=== PATIENT | female | born 1980 | race Caucasian/White ===

== ENCOUNTER 2017-08-10 08:16 | Emergency (ER) | payer MEDICAID, OTHER ==
[~2017-08-10] VITALS: Ht 137.2 cm; Wt 28.1 kg
[~2017-08-10 08:16] MED LIST: ALBU0.63 IH; ALBU1.256 IH; CHOL100028 PO; LEVO500T20 PO; LORA10TA2 PO; OLAN5TAB26 PO; OMEP20CA10 PO; PSYLLIUM PO
[2017-08-10 08:17] VITALS: BP_SYST 145
--- NOTE | 2017-08-10 08:17 | NUR ---
Patient to ER bed 03 to gown for evaluation. Side rails up. Report given to Dagoberto.
--- NOTE | 2017-08-10 08:20 | NUR ---
PATRICE Lawson at bedside examining patient.
--- NOTE | 2017-08-10 08:22 | NUR ---
Pt bib caregivers c/o bleeding L 5th digit. Caregivers unable to state how injury occurred and pt is poor historian. 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 Pt's finger is bleeding in spit of applied pressure.
[2017-08-10] MEDS ORDERED: DIPH-TET-PERTUS Vaccine 0.5 ML VIAL (ADACEL) I.M. ONE (08:30)
[2017-08-10] MEDS ORDERED: MORPHINE 2 MG/ML INJ. SYRINGE IM ONE (09:15)
--- NOTE | 2017-08-10 09:29 | NUR ---
Medicated per MD orders. Dr. Evans at bedside rewrapping left little finger. Pt tolerating well.
[2017-08-10 10:15] VITALS: BP_SYST 145
--- NOTE | 2017-08-10 10:15 | NUR ---
Patient given written and verbal discharge instructions and verbalizes understanding. ER MD discussed with patient the results and treatment provided. Patient in stable condition. ID arm band removed. NO RX GIVEN Patient educated on pain management and to follow up with PMD. Pain Scale 0. Opportunity for questions provided and answered.
== END 2017-08-10 10:15 | disposition home or self-care (01) ==
LOC: SED 08:16
DX: S61.307A Unspecified open wound of left little finger with damage to nail, initial encounter (principal); K21.9 Gastro-esophageal reflux disease without esophagitis; Z88.8 Allergy status to other drugs, medicaments and biological substances; X58.XXXA Exposure to other specified factors, initial encounter; Y93.89 Activity, other specified; Y92.89 Other specified places as the place of occurrence of the external cause; Y99.8 Other external cause status
CPT/HCPCS: 90471; 90715; 96372; 99284; J2270

== ENCOUNTER 2018-10-14 17:57 | Emergency (ER) | payer MEDICAID ==
[~2018-10-14] VITALS: Ht 137.2 cm; Wt 32.2 kg
[~2018-10-14 17:57] MED LIST changes: -ALBU1.256 IH; +ALBU1.257 IH; -CHOL100028 PO; +CHOL100034 PO
== END 2018-10-14 18:47 | disposition home or self-care (01) ==
LOC: SED 17:57
DX: H60.12 Cellulitis of left external ear (principal); K21.9 Gastro-esophageal reflux disease without esophagitis; Z86.2 Personal history of diseases of the blood and blood-forming organs and certain disorders involving the immune mechanism; Z88.8 Allergy status to other drugs, medicaments and biological substances; Z79.899 Other long term (current) drug therapy
CPT/HCPCS: 99283

== ENCOUNTER 2018-11-07 08:47 | Emergency (ER) | payer MEDICAID ==
[~2018-11-07] VITALS: Ht 144.8 cm; Wt 32.2 kg
[2018-11-07] MEDS ORDERED: NACL 0.9% 1,000 ML IV ONE (08:53)
[2018-11-07 08:57] VITALS: BP_SYST 100
[2018-11-07] MEDS ORDERED: LORazepam 2 MG/ML VIAL (FOR ER USE) IM ONE (09:30)
[2018-11-07 09:36] LABS: BILIRUBIN,URINE NEGATIVE (NEGATIVE); BLOOD, URINE NEGATIVE (NEGATIVE); CLARITY/URINE CLEAR (CLEAR); COLOR,URINE YELLOW (YELLOW); GLUCOSE,URINE NEGATIVE (NEGATIVE); KETONES,URINE TRACE (NEGATIVE); LEUKOCYTE ESTERASE ,URINE NEGATIVE (NEGATIVE); NITRITE, URINE NEGATIVE (NEGATIVE); PH,URINE 6.5 (5.0-8.0); PROTEIN URINE NEGATIVE (NEGATIVE); UROBILINOGEN,URINE 0.2 (0.2-1.0)
[2018-11-07 10:20] LABS: BASOPHILS # (AUTO) 0.1 K/uL (0.0-0.2); BASOPHILS % (AUTO) 0.8 % (0.0-2.0); EOSINOPHILS # (AUTO) 0.2 K/uL (0.0-0.4); EOSINOPHILS % (AUTO) 1.8 % (0.0-4.0); HEMATOCRIT 42.7 % (36-48); LYMPHOCYTES # (AUTO) 1.3 K/uL (1.0-5.5); LYMPHOCYTES % (AUTO) 11.3 % (20.5-51.5); MEAN CORPUSCULAR HEMOGLOBIN 29 pg (27-31); MEAN CORPUSCULAR HGB CONC 33 % (32-36); MEAN CORPUSCULAR VOLUME 87 fL (79.0-98.0); MONOCYTES # (AUTO) 0.6 K/uL (0.0-1.0); MONOCYTES % (AUTO) 5.6 % (1.7-9.3); NEUTROPHILS # (AUTO) 9.3 K/uL (1.8-7.7); NEUTROPHILS % (AUTO) 80.5 % (40.0-70.0); PLATELET COUNT (AUTO) 211 K/uL (130-430); RED BLOOD CELL COUNT(AUTO) 4.89 MIL/uL (4.2-6.2); WHITE BLOOD COUNT (AUTO) 11.5 K/uL (4.8-10.8)
[2018-11-07 10:26] LABS: CALCIUM 8.9 mg/dL (8.4-11.0); CREATININE 0.87 mg/dL (0.55-1.30); POTASSIUM 3.8 mmol/L (3.5-5.1)
[2018-11-07 10:31] LABS: ALBUMIN 3.2 g/dL (3.4-4.8); TOTAL BILIRUBIN 0.1 mg/dL (0.0-1.0)
[2018-11-07] MEDS ORDERED: cefTRIAXone 250 MG VIAL IM ONE (12:30)
[2018-11-07] MEDS ORDERED: LIDOCAINE 1%, 20 ML MDV 20 ML ONE (13:05)
[2018-11-07 13:44] VITALS: BP_SYST 109
== END 2018-11-07 13:44 | disposition home or self-care (01) ==
LOC: SED 08:47
DX: R45.1 Restlessness and agitation (principal); H66.92 Otitis media, unspecified, left ear; D72.829 Elevated white blood cell count, unspecified; K21.9 Gastro-esophageal reflux disease without esophagitis; Z86.2 Personal history of diseases of the blood and blood-forming organs and certain disorders involving the immune mechanism; Z88.8 Allergy status to other drugs, medicaments and biological substances; Z79.899 Other long term (current) drug therapy
CPT/HCPCS: 36415; 71045; 80053; 81003; 82550; 83605; 83690; 84484; 85025; 85610; 85730; 87040; 96372; 99284; J0696; J2001; J2060

== ENCOUNTER 2019-01-02 14:31 | Emergency (ER) | payer MEDICAID ==
[~2019-01-02] VITALS: Ht 132.1 cm; Wt 31.8 kg
[2019-01-02 14:56] VITALS: BP_SYST 149
[2019-01-02] MEDS ORDERED: LORazepam 2 MG/ML VIAL IM ONE (16:00)
[2019-01-02] MEDS ORDERED: DIPHENHYDRAMINE INJ 50 MG/ML VIAL IM ONE (16:00)
[2019-01-02] MEDS ORDERED: LORazepam 2 MG/ML VIAL (FOR ER USE) ONE (17:41)
== END 2019-01-02 18:44 | disposition home or self-care (01) ==
LOC: SED 14:31
DX: S00.11XA Contusion of right eyelid and periocular area, initial encounter (principal); R03.0 Elevated blood-pressure reading, without diagnosis of hypertension; K21.9 Gastro-esophageal reflux disease without esophagitis; Z86.2 Personal history of diseases of the blood and blood-forming organs and certain disorders involving the immune mechanism; Z88.8 Allergy status to other drugs, medicaments and biological substances; Z79.899 Other long term (current) drug therapy; W19.XXXA Unspecified fall, initial encounter; Y93.89 Activity, other specified; Y92.89 Other specified places as the place of occurrence of the external cause; Y99.8 Other external cause status
CPT/HCPCS: 96372; 99283; J1200; J2060; 99284

== ENCOUNTER 2019-06-26 20:31 | Emergency (ER) | payer MEDICAID ==
[~2019-06-26] VITALS: Ht 121.9 cm; Wt 29.0 kg
[2019-06-26 21:16] VITALS: BP_SYST 126
--- NOTE | 2019-06-26 22:03 | NUR ---
Edward rasmussen in ED - 06/26/19 at 2310 by KELLY Pt placed to ER bed 01 with career advisor. Pt report given to VERITO Argueta.
--- NOTE | 2019-06-26 23:01 | NUR ---
Patient to ER bed 08 to gown for evaluation. Side rails up.
--- NOTE | 2019-06-26 23:02 | NUR ---
Pt brought by caregiver, per caregiver pt has bruising to Right eye s/p hitting right face on a night stand while , pt ambulatory ,Alert X1 , pt with Hx of mental deficits, respirations even and unlabored, no bleeding noted, will continue to monitor .
--- NOTE | 2019-06-26 23:03 | NUR ---
Dr Canela at bedside examining patient
[2019-06-26 23:15] VITALS: BP_SYST 122
--- NOTE | 2019-06-26 23:20 | NUR ---
Patient and pt's caregiver given written and verbal discharge instructions and verbalizes understanding. ER MD discussed with patient and pt's caregiver the results and treatment provided. Patient in stable condition. ID arm band removed. No Rx given. Patient and pt's caregiver educated on pain management and to follow up with PMD. Pain Scale 2/10 tolerable for pt. Opportunity for questions provided and answered. Medication side effect fact sheet provided.
== END 2019-06-26 23:20 | disposition home or self-care (01) ==
LOC: SED 20:31
DX: S00.11XA Contusion of right eyelid and periocular area, initial encounter (principal); K21.9 Gastro-esophageal reflux disease without esophagitis; Z86.2 Personal history of diseases of the blood and blood-forming organs and certain disorders involving the immune mechanism; Z88.8 Allergy status to other drugs, medicaments and biological substances; Z79.899 Other long term (current) drug therapy; W18.09XA Striking against other object with subsequent fall, initial encounter; Y93.02 Activity, running; Y92.89 Other specified places as the place of occurrence of the external cause; Y99.8 Other external cause status
CPT/HCPCS: 99281

== ENCOUNTER 2019-07-31 07:49 | Emergency (ER) | payer MEDICAID ==
[~2019-07-31] VITALS: Ht 132.1 cm; Wt 31.8 kg
[2019-07-31 07:59] VITALS: BP_SYST 138
[2019-07-31] MEDS ORDERED: prednisoLONE 15 MG/5 ML UDC PO ONE (08:15)
[2019-07-31 19:13] VITALS: BP_SYST 135
== END 2019-07-31 09:12 | disposition home or self-care (01) ==
LOC: SED 07:49
DX: J45.901 Unspecified asthma with (acute) exacerbation (principal); K21.9 Gastro-esophageal reflux disease without esophagitis; Z88.8 Allergy status to other drugs, medicaments and biological substances; Z79.899 Other long term (current) drug therapy
CPT/HCPCS: 71045; 99283

== ENCOUNTER 2020-08-01 19:04 | Emergency (ER) | payer MEDICAID ==
[~2020-08-01] VITALS: Ht 134.6 cm; Wt 29.9 kg
[~2020-08-01 19:04] MED LIST changes: -OMEP20CA10 PO; +OMEP20CA11 PO
[2020-08-01 19:20] VITALS: BP_SYST 125
--- NOTE | 2020-08-01 19:20 | NUR ---
Patient to ER bed 4 to gown for evaluation. Side rails up.
--- NOTE | 2020-08-01 19:30 | NUR ---
pt hit the back of her head today around 4pm and has a well approximated laceration, bleeding controlled. pt hx of intellectual disability and typical behavior includes swinging arms and head around. caregiver denies any vomiting or change in behavior.
--- NOTE | 2020-08-01 19:35 | NUR ---
PATRICE maravilla at bedside examining patient.
--- NOTE | 2020-08-01 19:45 | NUR ---
VERITO white at bedside to clean laceration with normal saline and iodine.
--- NOTE | 2020-08-01 19:49 | NUR ---
Head laceration irrigated w/ Normal Saline, approx 100ml. Pt tolerated well.
--- NOTE | 2020-08-01 20:00 | NUR ---
DR. OBRIEN AT BEDSIDE APPLYING DERMABOND TO LACERATION.
--- NOTE | 2020-08-01 20:06 | NUR ---
Patient given written and verbal discharge instructions and verbalizes understanding. ER MD discussed with patient the results and treatment provided. Patient in stable condition. ID arm band removed. Patient educated on pain management and to follow up with PMD, Restaurant Mgr educated wound must be kept clean and dry. Pain Scale 0/10. Opportunity for questions provided and answered.
== END 2020-08-01 20:06 | disposition home or self-care (01) ==
LOC: SED 19:04
DX: S01.01XA Laceration without foreign body of scalp, initial encounter (principal); J45.909 Unspecified asthma, uncomplicated; K21.9 Gastro-esophageal reflux disease without esophagitis; Z86.2 Personal history of diseases of the blood and blood-forming organs and certain disorders involving the immune mechanism; Z79.899 Other long term (current) drug therapy; Z88.8 Allergy status to other drugs, medicaments and biological substances; W22.01XA Walked into wall, initial encounter; Y93.89 Activity, other specified; Y92.89 Other specified places as the place of occurrence of the external cause; Y99.8 Other external cause status
CPT/HCPCS: 99282

== ENCOUNTER 2021-03-04 13:33 | Emergency (ER) | payer MEDICAID ==
[~2021-03-04] VITALS: Ht 121.9 cm; Wt 31.3 kg
[~2021-03-04 13:33] MED LIST changes: -OMEP20CA11 PO; +OMEP20CA15 PO
[2021-03-04 13:45] VITALS: BP_SYST 135
[2021-03-04] MEDS ORDERED: LIDOCAINE 1% 10 MG/ML, 20 ML MDV INJ ONE (14:00)
[2021-03-04 14:16] VITALS: BP_SYST 135
== END 2021-03-04 14:15 | disposition home or self-care (01) ==
LOC: SED 13:33
DX: S01.81XA Laceration without foreign body of other part of head, initial encounter (principal); J45.909 Unspecified asthma, uncomplicated; K21.9 Gastro-esophageal reflux disease without esophagitis; Z88.5 Allergy status to narcotic agent; Z88.8 Allergy status to other drugs, medicaments and biological substances; Z79.899 Other long term (current) drug therapy; W22.01XA Walked into wall, initial encounter; Y93.89 Activity, other specified; Y92.89 Other specified places as the place of occurrence of the external cause; Y99.8 Other external cause status
CPT/HCPCS: 99282

== ENCOUNTER 2021-05-22 06:48 | Emergency (ER) | payer MEDICAID ==
[2021-05-22 07:00] VITALS: BP_SYST 96
--- NOTE | 2021-05-22 07:00 | NUR ---
Patient to ER bed 7 to gown for evaluation. Side rails up. Report given to day shift.
--- NOTE | 2021-05-22 07:10 | NUR ---
ER at bedside examining patient.
[2021-05-22] MEDS ORDERED: AMOX-426 PO (07:13)
--- NOTE | 2021-05-22 07:20 | NUR ---
Pt. bib care givers from special needs home with a laceration to middle left finger, cut it open on night stand, Dr. Sanon at bedside, dermabond applied, and bandaid on.
--- NOTE | 2021-05-22 07:36 | NUR ---
Patients caregiver given written and verbal discharge instructions and verbalizes understanding. Dr. Sanon discussed with patient the results and treatment provided. Patient in stable condition. ID arm band removed. Rx of Augmentin given. Patient educated on pain management and to follow up with PMD. Pain Scale 0. Opportunity for questions provided and answered. Medication side effect fact sheet provided.
[2021-05-22 07:43] VITALS: BP_SYST 96
== END 2021-05-22 07:43 | disposition home or self-care (01) ==
LOC: SED 06:48
DX: S61.213A Laceration without foreign body of left middle finger without damage to nail, initial encounter (principal); J45.909 Unspecified asthma, uncomplicated; K21.9 Gastro-esophageal reflux disease without esophagitis; Z88.8 Allergy status to other drugs, medicaments and biological substances; Z88.1 Allergy status to other antibiotic agents; Z79.899 Other long term (current) drug therapy; Y04.1XXA Assault by human bite, initial encounter; Y93.89 Activity, other specified; Y92.89 Other specified places as the place of occurrence of the external cause; Y99.8 Other external cause status
CPT/HCPCS: 99283

== ENCOUNTER 2021-06-24 12:12 | Emergency (ER) | payer MEDICAID ==
[~2021-06-24] VITALS: Ht 144.8 cm; Wt 30.8 kg
[2021-06-24 12:12] VITALS: BP_SYST 120
[~2021-06-24 12:12] MED LIST changes: +AMOX-426 PO
--- NOTE | 2021-06-24 12:12 | NUR ---
PT TRIAGED WITH [facility]. PT NON-VERBAL, MOANING, COOPERATIVE WITH TRIAGE. PT IS MENTALLY HANDICAPPED. TRIAGED IN TRIAGE ROOM AND DR GATES CALLED TO ROOM. DR GATES CALLED TO TRIAGE ROOM. PT EVALUATED BY DR GATES
--- NOTE | 2021-06-24 12:24 | NUR ---
PER [facility], PT LIKE TO FEEL PAIN, PT HEAD BUTTED THE CAR DOOR A FEW HOURS AGO. WOUND APPEARS OLD, SCAB NOTED.
--- NOTE | 2021-06-24 13:10 | NUR ---
[facility] CALLED FOR DISCHARGE PAPERWORK, DR GATES AWARE
--- NOTE | 2021-06-24 13:30 | NUR ---
[facility] STATING THEY WILL BE LEAVING IF THEY DON'T GET PAPERWORK NOW, EXPLAINED TO THEM THAT DR WILL BE DISCHARGING WHEN HE HAS TIME.
--- NOTE | 2021-06-24 14:01 | NUR ---
ATTEMPTED TO DISCHARGE PT BUT UNABLE TO FIND [facility], CALL PLACED TO [facility], NO ANSWER.
--- NOTE | 2021-06-24 14:29 | NUR ---
Note undone in EDM - 06/24/21 at 1515 by YURIDIA Patient given written and verbal discharge instructions and verbalizes understanding. ER discussed with patient the results and treatment provided. Patient in stable condition. ID arm band removed. Rx of NONE given. Patient educated on pain management and to follow up with PMD. Pain Scale 0/10. Opportunity for questions provided and answered. Medication side effect fact sheet provided.
--- NOTE | 2021-06-24 15:04 | NUR ---
Patient given written and verbal discharge instructions and verbalizes understanding. ER MD discussed with patient the results and treatment provided. Patient in stable condition. ID arm band removed. Rx of NONE given. Patient educated on pain management and to follow up with PMD. Pain Scale NONE. Opportunity for questions provided and answered. Medication side effect fact sheet provided.
== END 2021-06-24 14:29 | disposition home or self-care (01) ==
LOC: SED 12:12
DX: S01.81XA Laceration without foreign body of other part of head, initial encounter (principal); F79 Unspecified intellectual disabilities; J45.909 Unspecified asthma, uncomplicated; K21.9 Gastro-esophageal reflux disease without esophagitis; Z88.8 Allergy status to other drugs, medicaments and biological substances; Z79.899 Other long term (current) drug therapy
CPT/HCPCS: 99281; 99283

== ENCOUNTER 2021-09-08 20:43 | Emergency (ER) | payer MEDICAID ==
[~2021-09-08] VITALS: Ht 129.5 cm; Wt 29.0 kg
[~2021-09-08 20:43] MED LIST changes: -OLAN5TAB26 PO; +OLAN5TAB71 PO
[2021-09-08 20:55] VITALS: BP_SYST 111
[2021-09-08] MEDS ORDERED: DIPH-TET-PERTUS Vaccine 0.5 ML VIAL (ADACEL) I.M. ONE (21:15)
[2021-09-08] MEDS ORDERED: BACITRACIN 1 GM OINT TP ONE (21:15)
[2021-09-08 21:31] VITALS: BP_SYST 111
== END 2021-09-08 21:31 | disposition home or self-care (01) ==
LOC: SED 20:43
DX: S01.01XA Laceration without foreign body of scalp, initial encounter (principal); K21.9 Gastro-esophageal reflux disease without esophagitis; J45.909 Unspecified asthma, uncomplicated; Z79.899 Other long term (current) drug therapy; W18.39XA Other fall on same level, initial encounter; Y93.89 Activity, other specified; Y92.89 Other specified places as the place of occurrence of the external cause; Y99.8 Other external cause status; Z88.8 Allergy status to other drugs, medicaments and biological substances
CPT/HCPCS: 90715; 99283

== ENCOUNTER 2021-10-13 09:47 | Emergency (ER) | payer MEDICAID ==
[~2021-10-13] VITALS: Ht 132.1 cm; Wt 31.8 kg
[2021-10-13 09:59] VITALS: BP_SYST 101
== END 2021-10-13 10:31 | disposition home or self-care (01) ==
LOC: SED 09:47
DX: S00.432A Contusion of left ear, initial encounter (principal); K21.9 Gastro-esophageal reflux disease without esophagitis; J45.909 Unspecified asthma, uncomplicated; Z88.8 Allergy status to other drugs, medicaments and biological substances; Z79.899 Other long term (current) drug therapy; X58.XXXA Exposure to other specified factors, initial encounter; Y93.89 Activity, other specified; Y92.89 Other specified places as the place of occurrence of the external cause; Y99.8 Other external cause status
CPT/HCPCS: 99281

== ENCOUNTER 2022-01-13 09:39 | Emergency (ER) | payer MEDICAID ==
[~2022-01-13] VITALS: Ht 104.1 cm; Wt 31.8 kg
[2022-01-13 10:38] VITALS: BP_SYST 124
[2022-01-13] MEDS ORDERED: ERYEYE RIGHT EYE (10:55)
[2022-01-13] MEDS ORDERED: ERYTHROMYCIN 0.5% EYE OINT 3.5 GM OP ONE (11:00)
[2022-01-13 11:01] VITALS: BP_SYST 118
== END 2022-01-13 11:01 | disposition home or self-care (01) ==
LOC: SED 09:39
DX: S00.211A Abrasion of right eyelid and periocular area, initial encounter (principal); H11.31 Conjunctival hemorrhage, right eye; R45.1 Restlessness and agitation; Q87.19 Other congenital malformation syndromes predominantly associated with short stature; F79 Unspecified intellectual disabilities; J45.909 Unspecified asthma, uncomplicated; K21.9 Gastro-esophageal reflux disease without esophagitis; Z88.8 Allergy status to other drugs, medicaments and biological substances; Z79.899 Other long term (current) drug therapy; X83.8XXA Intentional self-harm by other specified means, initial encounter; Y93.89 Activity, other specified; Y92.89 Other specified places as the place of occurrence of the external cause; Y99.8 Other external cause status
CPT/HCPCS: 99283

== ENCOUNTER 2022-05-23 02:35 | Emergency (ER) | payer MEDICAID ==
[~2022-05-23] VITALS: Ht 137.2 cm; Wt 29.9 kg
[~2022-05-23 02:35] MED LIST changes: +ERYEYE RIGHT EYE
[2022-05-23 02:49] VITALS: BP_SYST 120
--- NOTE | 2022-05-23 03:20 | NUR ---
Patient to ER bed 8 to gown for evaluation. Side rails up. Report given to RIN SELLERS.
--- NOTE | 2022-05-23 03:30 | NUR ---
BIB VIA W/C WITH FAMILY. PT DEVELOP DELAYED.S/P FALL HITTING BACK OF HEAD. LAC TO POST HEAD, MILD BLEEDING NOTED.
--- NOTE | 2022-05-23 04:25 | NUR ---
TO CAT SCAN WITH TECH VIA W/C WITH FAMILY.
--- NOTE | 2022-05-23 04:57 | NUR ---
RETURN FROM CT SCAN WITH TECH AND FAMILY VIA W/C. PT LAYING DOWN ON GUERNEY RESTING COMFORTABLY.
[2022-05-23] MEDS ORDERED: LIDOCAINE/EPI 1% 1:100000 20 ML VIAL INJ ONE (05:00)
[2022-05-23 06:09] VITALS: BP_SYST 105
[2022-06-18] MEDS ORDERED: IBUP-2604 PO (23:17)
== END 2022-05-23 06:09 | disposition home or self-care (01) ==
LOC: SED 02:35
DX: S01.01XA Laceration without foreign body of scalp, initial encounter (principal); S09.90XA Unspecified injury of head, initial encounter; Z88.8 Allergy status to other drugs, medicaments and biological substances; W01.0XXA Fall on same level from slipping, tripping and stumbling without subsequent striking against object, initial encounter; Y93.89 Activity, other specified; Y92.89 Other specified places as the place of occurrence of the external cause; Y99.8 Other external cause status
CPT/HCPCS: 70450-TC; 72125-TC; 76376; 99284

== ENCOUNTER 2022-05-30 10:24 | Emergency (ER) | payer MEDICAID ==
[~2022-05-30] VITALS: Ht 132.1 cm; Wt 29.9 kg
[2022-05-30 11:00] VITALS: BP_SYST 96
[2022-05-30 13:41] VITALS: BP_SYST 92
== END 2022-05-30 10:47 | disposition home or self-care (01) ==
LOC: SED 10:24
DX: S01.01XD Laceration without foreign body of scalp, subsequent encounter (principal); Z48.02 Encounter for removal of sutures; J45.909 Unspecified asthma, uncomplicated; K21.9 Gastro-esophageal reflux disease without esophagitis; Z88.8 Allergy status to other drugs, medicaments and biological substances; Z79.899 Other long term (current) drug therapy; X58.XXXD Exposure to other specified factors, subsequent encounter
CPT/HCPCS: 99281

== ENCOUNTER 2022-06-19 00:50 | Emergency (ER) | payer MEDICAID ==
[~2022-06-19] VITALS: Ht 139.7 cm; Wt 31.8 kg
[~2022-06-19 00:50] MED LIST changes: +IBUP-2604 PO
[2022-06-19 00:54] VITALS: BP_SYST 122
--- NOTE | 2022-06-19 00:59 | NUR ---
PT BIB STAFF FROM [address] [place] [address] HOME AGAIN. STATED THEY FOUND A BUMP ON THE BACK OF HEAD FROM FALL. PER STAFF IN FIRST VISIT STATED THEY WITNESSED FALL AND THERE WAS NO LOC, KO OR TRUMA. HOWEVER, STATE THAT NOW THEY DID NOT SEE FALL. MADE AWARE. PT IN WAITING ROOM FOR BED IN ER.
--- NOTE | 2022-06-19 01:00 | NUR ---
PT PLACED IN LOBBY ACCOMPANIED BY 2 CAREGIVERS.
--- NOTE | 2022-06-19 02:06 | NUR ---
DR. ARIZA WITH PT IN LOBBY.
[2022-06-19 02:21] VITALS: BP_SYST 122
--- NOTE | 2022-06-19 02:21 | NUR ---
Patient given written and verbal discharge instructions and verbalizes understanding. ER Dr. Leonard discussed with patient the results and treatment provided. Patient in stable condition. ID arm band removed. Patient educated on pain management and to follow up with PMD. Pain Scale 3. Opportunity for questions provided and answered. Medication side effect fact sheet provided.
== END 2022-06-19 02:21 | disposition home or self-care (01) ==
LOC: SED 00:50
DX: S00.03XA Contusion of scalp, initial encounter (principal); J45.909 Unspecified asthma, uncomplicated; K21.9 Gastro-esophageal reflux disease without esophagitis; Z88.5 Allergy status to narcotic agent; Z88.8 Allergy status to other drugs, medicaments and biological substances; Z79.899 Other long term (current) drug therapy; X58.XXXA Exposure to other specified factors, initial encounter; Y93.89 Activity, other specified; Y92.89 Other specified places as the place of occurrence of the external cause; Y99.8 Other external cause status
CPT/HCPCS: 70450-TC; 76376; 99284

== ENCOUNTER 2022-09-20 17:39 | Emergency (ER) | payer MEDICAID ==
[~2022-09-20] VITALS: Ht 157.5 cm; Wt 29.9 kg
[2022-09-20 17:54] VITALS: BP_SYST 144
--- NOTE | 2022-09-20 17:58 | NUR ---
Patient to ER bed 08 to gown for evaluation. Side rails up. Report given to VERITO RAMOS
--- NOTE | 2022-09-20 18:16 | NUR ---
PT WAS W/C'D TO BED BY MECHANICAL ENGINEERING LECTURER FOR LACERATION ON LEFT HINDUISM. PT FELL AND INJURE HER HEAD. PT HAS MENTAL DELAYED PROBLEM. HX OF CONELIA SYNDROME. CAREGIVER BEDSIDE WITH PT.
--- NOTE | 2022-09-20 19:01 | NUR ---
ED GLUED ON LACARATION BEDSIDE.
[2022-09-20 19:13] VITALS: BP_SYST 112
--- NOTE | 2022-09-20 19:23 | NUR ---
Patient given written and verbal discharge instructions and verbalizes understanding. ER MD discussed with patient the results and treatment provided. Patient in stable condition. ID arm band removed. Patient educated on pain management and to follow up with PMD. Pain Scale 0/10. Opportunity for questions provided and answered.
== END 2022-09-20 19:23 | disposition home or self-care (01) ==
LOC: SED 17:39
DX: S01.112A Laceration without foreign body of left eyelid and periocular area, initial encounter (principal); J45.909 Unspecified asthma, uncomplicated; K21.9 Gastro-esophageal reflux disease without esophagitis; Z88.5 Allergy status to narcotic agent; Z88.8 Allergy status to other drugs, medicaments and biological substances; Z79.899 Other long term (current) drug therapy; W10.8XXA Fall (on) (from) other stairs and steps, initial encounter; Y93.89 Activity, other specified; Y92.89 Other specified places as the place of occurrence of the external cause; Y99.8 Other external cause status
CPT/HCPCS: 99282

== ENCOUNTER 2023-02-10 13:09 | Emergency (ER) | payer MEDICAID ==
[~2023-02-10] VITALS: Ht 129.5 cm; Wt 49.9 kg
[2023-02-10 13:26] VITALS: BP_SYST 114
--- NOTE | 2023-02-10 14:00 | NUR ---
PATIENT ARRIVED TO ER FOR RIGHT CHIN LACERATION, CAREGIVER AT BEDSIDE.
[2023-02-10] MEDS ORDERED: LIDOCAINE 1%, 20 ML MDV 20 ML ONE (14:06)
[2023-02-10] MEDS ORDERED: LIDOCAINE/EPI 1% 1:100000 20 ML VIAL INJ ONE (14:15)
[2023-02-10] MEDS ORDERED: LIDOCAINE 1% 10 MG/ML, 20 ML MDV INJ ONE (14:15)
[2023-02-10] MEDS ORDERED: BACITRACIN 1 GM OINT TP ONE (14:15)
--- NOTE | 2023-02-10 14:40 | NUR ---
CAREGIVER REFUSES LACERATION REPAIR.
[2023-02-10] MEDS ORDERED: BACI15OI13 TP (14:41)
--- NOTE | 2023-02-10 14:51 | NUR ---
Patient given written and verbal discharge instructions and verbalizes understanding. ER MD discussed with patient the results and treatment provided. Patient in stable condition. ID arm band removed. IV catheter removed intact and dressing applied, no active bleeding. Rx of NEOSPORIN given. Patient educated on pain management and to follow up with PMD. Pain Scale . Opportunity for questions provided and answered. Medication side effect fact sheet provided.
== END 2023-02-10 14:51 | disposition home or self-care (01) ==
LOC: SED 13:09
DX: S01.81XA Laceration without foreign body of other part of head, initial encounter (principal); K21.9 Gastro-esophageal reflux disease without esophagitis; J45.909 Unspecified asthma, uncomplicated; Z88.8 Allergy status to other drugs, medicaments and biological substances; Z79.899 Other long term (current) drug therapy; W01.0XXA Fall on same level from slipping, tripping and stumbling without subsequent striking against object, initial encounter; Y93.89 Activity, other specified; Y92.89 Other specified places as the place of occurrence of the external cause; Y99.8 Other external cause status
CPT/HCPCS: 99282; J2001

== ENCOUNTER 2023-03-31 12:36 | Inpatient (IN) | payer MEDICAID ==
[~2023-03-31] VITALS: Ht 139.7 cm; Wt 29.5 kg
[~2023-03-31 12:36] MED LIST changes: +BACI15OI13 TP
[2023-03-31 12:49] VITALS: BP_SYST 115
[2023-03-31 13:48] LABS: BASOPHILS % (AUTO) 0.2 % (0.0-2.0); EOSINOPHILS # (AUTO) 0.3 K/uL (0.0-0.4); EOSINOPHILS % (AUTO) 1.7 % (0.0-4.0); HEMATOCRIT 35.3 % (36-48); HEMOGLOBIN 11.5 g/dL (12.0-16.0); LYMPHOCYTES # (AUTO) 2.2 K/uL (1.0-5.5); LYMPHOCYTES % (AUTO) 15.1 % (20.5-51.5); MEAN CORPUSCULAR HEMOGLOBIN 30 pg (27-31); MEAN CORPUSCULAR HGB CONC 33 % (32-36); MEAN CORPUSCULAR VOLUME 93 fL (79.0-98.0); MONOCYTES # (AUTO) 1.3 K/uL (0.0-1.0); MONOCYTES % (AUTO) 8.6 % (1.7-9.3); NEUTROPHILS # (AUTO) 10.9 K/uL (1.8-7.7); NEUTROPHILS % (AUTO) 74.4 % (40.0-70.0); PLATELET COUNT (AUTO) 177 K/uL (130-430); RED BLOOD CELL COUNT(AUTO) 3.79 MIL/uL (4.2-6.2); RED CELL DISTRIBUTION WIDTH 13.5 % (9.0-15.0); WHITE BLOOD COUNT (AUTO) 14.7 K/uL (4.8-10.8)
[2023-03-31 14:03] LABS: ANION GAP 10 (5-15); CALCIUM 7.6 mg/dL (8.4-11.0); CHLORIDE 102 mmol/L (98-107); CREATININE 0.93 mg/dL (0.55-1.30); GFR AFRICAN AMERICAN 84 mL/min (>90); GLUCOSE 129 mg/dL (70-99); UREA NITROGEN, BLOOD 20 mg/dL (8-21)
[2023-03-31 14:10] LABS: ALANINE AMINOTRANSFERASE 16 U/L (12-78); ASPARTATE AMINOTRANSFERASE 13 U/L (10-37); TOTAL BILIRUBIN 0.1 mg/dL (0.0-1.0)
[2023-03-31] MEDS ORDERED: IPRATROPIUM BROM 0.5 MG/2.5 ML VIAL.NEB (ATROVENT) INH ONE ×2 (14:15→14:18)
[2023-03-31] MEDS ORDERED: ALBUTEROL SULFATE 0.083% 2.5 MG/3 ML VIAL.NEB INH ONE ×2 (14:15→14:18)
[2023-03-31] MEDS ORDERED: NACL 0.9% 1,000 ML IV ONE (15:00)
[2023-03-31] MEDS ORDERED: LORazepam 2 MG/ML VIAL IM ONE (15:15)
[2023-03-31] MEDS ORDERED: POTASSIUM CHLORIDE 20 MEQ TAB.PRT.SR PO PRN (15:45)
[2023-03-31] MEDS ORDERED: MAGNESIUM SULFATE 50 ML IV PRN (15:45)
[2023-03-31] MEDS ORDERED: DOCUSATE SODIUM 100 MG CAPSULE PO PRN (15:45)
[2023-03-31] MEDS ORDERED: MUPIROCIN 2% TOPICAL OINTMENT 22 GM NS PRN (15:45)
[2023-03-31] MEDS ORDERED: IPRATROPIUM/ALBUTEROL SULFATE 3 ML AMPUL.NEB (DUONEB) INH PRN (15:45)
[2023-03-31] MEDS ORDERED: ZOLPIDEM TARTRATE 5 MG TABLET PO PRN (15:45)
[2023-03-31] MEDS ORDERED: methylPREDNISolone SOD SUCC 500 MG/VIAL (Solu-MEDROL) IV SCH (15:45)
[2023-03-31] MEDS ORDERED: ONDANSETRON HCL 4 MG/2 ML VIAL IVP PRN (15:45)
[2023-03-31] MEDS ORDERED: ACETAMINOPHEN 325 MG TABLET PO PRN ×2 (15:45→17:00)
[2023-03-31] MEDS ORDERED: MORPHINE 2 MG/ML INJ. SYRINGE IVP PRN ×2 (15:45)
[2023-03-31] MEDS ORDERED: NALOXONE HCL 0.4 MG/ML AMP (NARCAN) IVP PRN ×2 (15:45)
[2023-03-31] MEDS ORDERED: AZITHROMYCIN 250 MG TABLET PO ONE (16:00)
[2023-03-31] MEDS ORDERED: FER300L PO (16:04)
[2023-03-31] MEDS ORDERED: MOM PO (16:04)
[2023-03-31] MEDS ORDERED: LORA-258 PO (16:04)
[2023-03-31] MEDS ORDERED: VALP250S3 PO (16:04)
[2023-03-31] MEDS ORDERED: QUET50TA24 PO (16:04)
[2023-03-31] MEDS ORDERED: IPRA4AER INH (16:04)
[2023-03-31] MEDS ORDERED: PHEDM120 PO (16:04)
[2023-03-31] MEDS ORDERED: ZOLP5TAB2 PO (16:04)
[2023-03-31] MEDS ORDERED: REVE175V IH (16:04)
[2023-03-31] MEDS ORDERED: MENT113O13 (16:04)
[2023-03-31] MEDS ORDERED: FENO48TA8 PO (16:04)
[2023-03-31] MEDS ORDERED: MULT-1117 PO (16:04)
[2023-03-31] MEDS ORDERED: LANS30CA56 PO (16:04)
[2023-03-31] MEDS ORDERED: ACET325T PO (16:04)
[2023-03-31] MEDS ORDERED: MONT-40 PO (16:04)
[2023-03-31] MEDS ORDERED: MV-M1TAB19 PO (16:04)
[2023-03-31] MEDS ORDERED: LUV50 PO (16:04)
[2023-03-31] MEDS ORDERED: OLAN10TA71 PO (16:04)
[2023-03-31] MEDS ORDERED: MELA1TAB15 PO (16:04)
[2023-03-31] MEDS ORDERED: OLAN15TA36 PO (16:04)
[2023-03-31] MEDS ORDERED: POLY17PO4 PO (16:04)
[2023-03-31] MEDS ORDERED: cefTRIAXone 2 GM VIAL ONE (16:09)
[2023-03-31] MEDS ORDERED: NACL 0.9% 1,000 ML IV SCH (17:15)
[2023-03-31] MEDS ORDERED: KETAMINE HCL IN 0.9 % NACL 50 MG/5 ML SYRINGE IVP ONE (17:30)
[2023-03-31] MEDS ORDERED: KETAMINE 30 MG/3 ML SYRINGE IVP ONE (17:30)
[2023-03-31 18:38] VITALS: BP_SYST 134
[2023-03-31 18:49] VITALS: BP_SYST 119
[2023-03-31] MEDS: LORazepam 2 MG/ML VIAL IVP PRN (20:10)
[2023-03-31 21:00] VITALS: BP_SYST 119
[2023-03-31] MEDS ORDERED: METHYLPREDNISOLONE SOD SUCC 40 MG/ML VIAL IVP SCH (21:00)
[2023-03-31] MEDS ORDERED: OLANZapine 5 MG TABLET PO SCH (21:00)
[2023-03-31 22:07] VITALS: BP_SYST 119
[2023-04-01 00:30] VITALS: BP_SYST 121
[2023-04-01] MEDS: LORazepam 2 MG/ML VIAL IVP PRN (01:20)
[2023-04-01 04:00] VITALS: BP_SYST 107
[2023-04-01 05:27] LABS: BASOPHILS % (AUTO) 0.1 % (0.0-2.0); HEMATOCRIT 32.6 % (36-48); HEMOGLOBIN 10.8 g/dL (12.0-16.0); LYMPHOCYTES # (AUTO) 0.5 K/uL (1.0-5.5); LYMPHOCYTES % (AUTO) 5.9 % (20.5-51.5); MEAN CORPUSCULAR HEMOGLOBIN 30 pg (27-31); MEAN CORPUSCULAR HGB CONC 33 % (32-36); MEAN CORPUSCULAR VOLUME 91 fL (79.0-98.0); MONOCYTES # (AUTO) 0.1 K/uL (0.0-1.0); MONOCYTES % (AUTO) 0.9 % (1.7-9.3); NEUTROPHILS # (AUTO) 8.7 K/uL (1.8-7.7); NEUTROPHILS % (AUTO) 93.1 % (40.0-70.0); PLATELET COUNT (AUTO) 150 K/uL (130-430); RED BLOOD CELL COUNT(AUTO) 3.57 MIL/uL (4.2-6.2); RED CELL DISTRIBUTION WIDTH 13.3 % (9.0-15.0); WHITE BLOOD COUNT (AUTO) 9.3 K/uL (4.8-10.8)
[2023-04-01 05:54] LABS: CALCIUM 8.2 mg/dL (8.4-11.0); CREATININE 0.67 mg/dL (0.55-1.30)
[2023-04-01] MEDS ORDERED: PRED5TAB PO (06:42)
[2023-04-01] MEDS ORDERED: ALBMDI INH (06:51)
[2023-04-01 07:45] VITALS: BP_SYST 97
[2023-04-01 08:11] VITALS: BP_SYST 97
[2023-04-01] MEDS ORDERED: OLANZapine 5 MG TABLET PO SCH (09:00)
[2023-04-01] MEDS ORDERED: LORATADINE 10 MG TABLET PO SCH (09:00)
[2023-04-01] MEDS ORDERED: AZITHROMYCIN 250 MG TABLET PO SCH (09:00)
[2023-04-01] MEDS ORDERED: cefTRIAXone 1 GM in D5W 50 ML IV SCH (17:00)
== END 2023-04-01 08:30 | disposition home or self-care (01) | DRG 140 ==
LOC: SED 12:36 → STU 15:24
PROVIDERS: ADMIT General Practice; ATTEND General Practice
DX: J44.1 Chronic obstructive pulmonary disease with (acute) exacerbation (principal); E43 Unspecified severe protein-calorie malnutrition; E87.20 Acidosis, unspecified; R65.10 Systemic inflammatory response syndrome (SIRS) of non-infectious origin without acute organ dysfunction; D64.9 Anemia, unspecified; Z20.822 Contact with and (suspected) exposure to COVID-19; R62.50 Unspecified lack of expected normal physiological development in childhood; Z79.899 Other long term (current) drug therapy; Z88.8 Allergy status to other drugs, medicaments and biological substances; Z68.1 Body mass index [BMI] 19.9 or less, adult; Z78.1 Physical restraint status
CPT/HCPCS: 36415; 71045; 80048; 80053; 83037; 83605; 83735; 83880; 84484; 84703; 85025; 87040; 94760; 96365; 96372; 99285; G0378; J0696; J1030; J2060; J2270; J7030; J7613

== ENCOUNTER 2023-11-09 09:18 | Emergency (ER) | payer MEDICAID ==
[~2023-11-09] VITALS: Ht 132.1 cm; Wt 29.9 kg
[~2023-11-09 09:18] MED LIST changes: +ACET325T PO; +ALBMDI INH; -ALBU1.257 IH; -AMOX-426 PO; -BACI15OI13 TP; -CHOL100034 PO; -ERYEYE RIGHT EYE; +FENO48TA8 PO; +FER300L PO; -IBUP-2604 PO; +IPRA4AER INH; +LANS30CA56 PO; -LEVO500T20 PO; +LORA-258 PO; +LUV50 PO; +MELA1TAB15 PO; +MENT113O13; +MOM PO; +MONT-40 PO; +MULT-1117 PO; +MV-M1TAB19 PO; +OLAN10TA71 PO; +OLAN15TA36 PO; -OLAN5TAB71 PO; -OMEP20CA15 PO; +PHEDM120 PO; +POLY17PO4 PO; +PRED5TAB PO; -PSYLLIUM PO; +QUET50TA24 PO; +REVE175V IH; +VALP250S3 PO; +ZOLP5TAB2 PO
[2023-11-09 09:30] VITALS: BP_SYST 112; PULSE 67; RESP 20; TEMP 97.9; O2SAT 99
== END 2023-11-09 10:05 | disposition home or self-care (01) ==
LOC: SED 09:18
DX: S01.01XA Laceration without foreign body of scalp, initial encounter (principal); J44.9 Chronic obstructive pulmonary disease, unspecified; K21.9 Gastro-esophageal reflux disease without esophagitis; Z88.8 Allergy status to other drugs, medicaments and biological substances; Z79.899 Other long term (current) drug therapy; W22.09XA Striking against other stationary object, initial encounter; Y93.89 Activity, other specified; Y92.89 Other specified places as the place of occurrence of the external cause; Y99.8 Other external cause status
CPT/HCPCS: 99282

== ENCOUNTER 2024-06-27 16:03 | Emergency (ER) | payer MEDICAID ==
[~2024-06-27] VITALS: Ht 157.5 cm; Wt 32.2 kg
[2024-06-27 16:16] VITALS: BP_SYST 136; PULSE 92; RESP 20; TEMP 98.3; O2SAT 98
[2024-06-27] MEDS: LIDOCAINE 1% 10 MG/ML, 20 ML MDV INJ ONE (16:40)
[2024-06-27] MEDS: BACITRACIN 1 GM OINT TP ONE (16:40)
[2024-06-27] MEDS: DIPHTH,PERTUSS(ACELL),TET VAC 0.5 ML VIAL (Tdap) I.M. ONE (16:44)
== END 2024-06-27 16:49 | disposition home or self-care (01) ==
LOC: SED 16:03
DX: S01.81XA Laceration without foreign body of other part of head, initial encounter (principal); J44.9 Chronic obstructive pulmonary disease, unspecified; K21.9 Gastro-esophageal reflux disease without esophagitis; Z88.8 Allergy status to other drugs, medicaments and biological substances; W22.8XXA Striking against or struck by other objects, initial encounter; Y93.89 Activity, other specified; Y92.89 Other specified places as the place of occurrence of the external cause; Y99.8 Other external cause status
CPT/HCPCS: 90715; 99283

== ENCOUNTER 2024-08-29 06:39 | Emergency (ER) | payer MEDICAID ==
[~2024-08-29] VITALS: Ht 109.2 cm; Wt 33.1 kg
[2024-08-29 06:45] VITALS: BP_SYST 133; PULSE 100; RESP 20; TEMP 98; O2SAT 96
[2024-08-29 07:54] LABS: BILIRUBIN,URINE NEGATIVE (NEGATIVE); BLOOD, URINE 1+ (NEGATIVE); CLARITY/URINE CLEAR (CLEAR); COLOR,URINE YELLOW (YELLOW); GLUCOSE,URINE NEGATIVE (NEGATIVE); KETONES,URINE NEGATIVE (NEGATIVE); LEUKOCYTE ESTERASE ,URINE NEGATIVE (NEGATIVE); NITRITE, URINE NEGATIVE (NEGATIVE); PROTEIN URINE NEGATIVE (NEGATIVE); UROBILINOGEN,URINE 0.2 (0.2-1.0)
[2024-08-29 07:58] LABS: BASOPHILS % (AUTO) 0.4 % (0.0-2.0); EOSINOPHILS # (AUTO) 0.3 K/uL (0.0-0.4); EOSINOPHILS % (AUTO) 4.9 % (0.0-4.0); HEMATOCRIT 34.7 % (36-48); HEMOGLOBIN 11.4 g/dL (12.0-16.0); LYMPHOCYTES % (AUTO) 17.7 % (20.5-51.5); MEAN CORPUSCULAR HEMOGLOBIN 30 pg (27-31); MEAN CORPUSCULAR HGB CONC 33 % (32-36); MEAN CORPUSCULAR VOLUME 90 fL (79.0-98.0); MONOCYTES # (AUTO) 0.6 K/uL (0.0-1.0); MONOCYTES % (AUTO) 11.2 % (1.7-9.3); NEUTROPHILS # (AUTO) 3.8 K/uL (1.8-7.7); NEUTROPHILS % (AUTO) 65.8 % (40.0-70.0); PLATELET COUNT (AUTO) 157 K/uL (130-430); RED BLOOD CELL COUNT(AUTO) 3.85 MIL/uL (4.2-6.2); RED CELL DISTRIBUTION WIDTH 13.2 % (9.0-15.0); WHITE BLOOD COUNT (AUTO) 5.8 K/uL (4.8-10.8)
[2024-08-29 08:16] LABS: WBC,URINE 0-3 /HPF (0-3)
[2024-08-29 08:17] LABS: BACTERIA,URINE FEW /HPF (None Seen)
[2024-08-29 08:20] LABS: PROTHROMBIN TIME 10.8 SECS (9.5-12.5)
[2024-08-29 08:47] LABS: SERUM HCG (QUALITATIVE) NEGATIVE (NEGATIVE)
[2024-08-29 08:49] LABS: ALBUMIN 2.5 g/dL (3.4-4.8); BILIRUBIN,DIRECT 0.1 mg/dL (0.0-0.3); CREATININE 0.65 mg/dL (0.55-1.30); POTASSIUM 3.8 mmol/L (3.5-5.1); TOTAL BILIRUBIN 0.1 mg/dL (0.0-1.0); TOTAL PROTEIN, SERUM 6.4 g/dL (6.4-8.3)
[2024-08-29] MEDS ORDERED: LOM2.5 PO (09:17)
[2024-08-29 09:21] VITALS: BP_SYST 133; PULSE 100; RESP 20; TEMP 98; O2SAT 96
== END 2024-08-29 09:23 | disposition home or self-care (01) ==
LOC: SED 06:39
DX: R19.7 Diarrhea, unspecified (principal); R11.2 Nausea with vomiting, unspecified; R10.84 Generalized abdominal pain; J45.909 Unspecified asthma, uncomplicated; K21.9 Gastro-esophageal reflux disease without esophagitis; J44.9 Chronic obstructive pulmonary disease, unspecified; Z88.8 Allergy status to other drugs, medicaments and biological substances; Z79.52 Long term (current) use of systemic steroids; Z79.899 Other long term (current) drug therapy; Z79.2 Long term (current) use of antibiotics
CPT/HCPCS: 36415; 80048; 80076; 81000; 81001; 81015; 82150; 83605; 83690; 84703; 85025; 85610; 85730; 99284

== ENCOUNTER 2024-09-04 11:40 | Emergency (ER) | payer MEDICAID ==
[~2024-09-04 11:40] MED LIST changes: +LOM2.5 PO
[2024-09-04 11:55] VITALS: PULSE 95; RESP 22; TEMP 98.1; O2SAT 97
[2024-09-04] MEDS: LORazepam 2 MG/ML VIAL IM ONE ×2 (12:33→15:39)
[2024-09-04] MEDS ORDERED: VANCOMYCIN HCL 1,000 MG in NS 250 ML IV ONE (15:30)
[2024-09-04 15:47] LABS: BASOPHILS % (AUTO) 0.5 % (0.0-2.0); EOSINOPHILS # (AUTO) 0.3 K/uL (0.0-0.4); HEMATOCRIT 36.5 % (36-48); HEMOGLOBIN 12.6 g/dL (12.0-16.0); LYMPHOCYTES # (AUTO) 1.4 K/uL (1.0-5.5); MEAN CORPUSCULAR HEMOGLOBIN 31 pg (27-31); MEAN CORPUSCULAR HGB CONC 34 % (32-36); MEAN CORPUSCULAR VOLUME 89 fL (79.0-98.0); MONOCYTES # (AUTO) 0.5 K/uL (0.0-1.0); MONOCYTES % (AUTO) 6.5 % (1.7-9.3); NEUTROPHILS # (AUTO) 6.3 K/uL (1.8-7.7); PLATELET COUNT (AUTO) 230 K/uL (130-430); RED CELL DISTRIBUTION WIDTH 13.1 % (9.0-15.0); WHITE BLOOD COUNT (AUTO) 8.5 K/uL (4.8-10.8)
[2024-09-04 16:01] LABS: CALCIUM 8.5 mg/dL (8.4-11.0); CREATININE 0.88 mg/dL (0.55-1.30); POTASSIUM 3.9 mmol/L (3.5-5.1); TOTAL BILIRUBIN 0.1 mg/dL (0.0-1.0); TOTAL PROTEIN, SERUM 7.2 g/dL (6.4-8.3)
[2024-09-04] MEDS: PIPERACILLIN/TAZO 4.5 GM in NS 100 ML IV ONE (16:53)
[2024-09-04] MEDS ORDERED: PIPERACILLIN/TAZOBACTAM 4.5 GM/VIAL (ZOSYN) IV ONE (16:56)
[2024-09-04] MEDS ORDERED: VANCOMYCIN HCL 1000 MG/VIAL IV ONE (17:47)
[2024-09-04 19:10] VITALS: BP_SYST 112; PULSE 107; RESP 26; TEMP 97.1; O2SAT 92
== END 2024-09-04 19:10 | disposition home or self-care (01) ==
LOC: SED 11:40
DX: S00.03XA Contusion of scalp, initial encounter (principal); S09.8XXA Other specified injuries of head, initial encounter; J45.909 Unspecified asthma, uncomplicated; K21.9 Gastro-esophageal reflux disease without esophagitis; Z88.8 Allergy status to other drugs, medicaments and biological substances; Z79.52 Long term (current) use of systemic steroids; Z79.899 Other long term (current) drug therapy; Z79.2 Long term (current) use of antibiotics; W01.0XXA Fall on same level from slipping, tripping and stumbling without subsequent striking against object, initial encounter; Y93.89 Activity, other specified; Y92.89 Other specified places as the place of occurrence of the external cause; Y99.8 Other external cause status
CPT/HCPCS: 99285; 96365; 70450; 80053; 85025; 87040; 36415; 96372; J2060; J2543; J3370